=== PATIENT | male | born 1985 | race Caucasian/White ===

== ENCOUNTER 2021-04-14 12:31 | Emergency (ER) | payer MEDICAID ==
--- NOTE | 2021-04-14 13:20 | EDM.PDOCBH ---
ED HPI GENERAL MEDICAL PROBLEM - General Chief Complaint: Drug or Alcohol Abuse Stated Complaint: DRUNK Time Seen by Provider: 04/14/21 13:05 Source of Information: Reports: Patient, Old Records, Other (social services aide) History Limitations: Reports: No Limitations - History of Present Illness INITIAL COMMENTS - FREE TEXT/NARRATIVE: 35 yo male is brought in for medical clearance for alcohol detox. He has been drinking heavily lately and has experienced some recent vomiting. He has a pHx of alcohol abuse and has been through detox multiple times. He has a bed waiting for him at [facility] in [place], [place] if he is deemed to be medically stable. Onset: Unknown/Unsure Duration: Chronic, Getting Worse Location: Reports: Generalized Quality: Reports: Other (pain not reported) Severity: Severe Improves with: Reports: Other (detox) Worsens with: Reports: Other (withdrawal or excessive use of ETOH) Context: Reports: Other (See HPI) Associated Symptoms: Reports: Nausea/Vomiting, Other (sx's of intoxication) Treatments INSTITUTIONAL CUSTODIAN: Reports: Other (see below) (none) - Related Data Allergies Allergy/AdvReac Type Severity Reaction Status Date / Time No Known Allergies Allergy Verified 04/14/21 12:42 Home Meds: Home Meds ARIPiprazole [Abilify] 5 mg PO DAILY 04/14/21 [History] Budesonide/Formoterol [Symbicort 160-4.5 MCG] 2 puff INH BID 04/14/21 [History] Mirtazapine [Remeron] 15 mg PO BEDTIME 04/14/21 [History] Sertraline [Zoloft] 100 mg PO DAILY 04/14/21 [History] lisinopriL [Lisinopril] 10 mg PO DAILY 04/14/21 [History] Social & Family History - Tobacco Use Tobacco Use Status *Q: Current Every Day Tobacco User Years of Tobacco use: 20 Packs/Tins Daily: 1 - Caffeine Use Caffeine Use: Reports: None - Alcohol Use Days Per Week of Alcohol Use: 7 Number of Drinks Per Day: 18 Total Drinks Per Week: 126 - Recreational Drug Use Recreational Drug Use: No ED ROS GENERAL - Review of Systems Review Of Systems: See Below Constitutional: Reports: Other (intoxication) HEENT: Reports: No Symptoms Respiratory: Reports: No Symptoms Cardiovascular: Reports: No Symptoms GI/Abdominal: Reports: Nausea, Vomiting : Reports: No Symptoms Musculoskeletal: Reports: No Symptoms Skin: Reports: No Symptoms Neurological: Reports: Difficulty Walking (due to intox), Gait Disturbance (due to intox) ED EXAM, BEHAVIORAL HEALTH - Physical Exam Exam: See Below Exam Limited By: No Limitations General Appearance: Alert, WD/WN, No Apparent Distress, Obese Eye Exam: Bilateral Eye: Normal Inspection Ears: Normal External Exam, Normal Canal, Hearing Grossly Normal Nose: Normal Inspection, No Blood Throat/Mouth: Normal Inspection, Normal Lips, Normal Oropharynx, Normal Voice, No Airway Compromise Head: Atraumatic, Normocephalic Neck: Normal Inspection Respiratory/Chest: No Respiratory Distress, Lungs Clear, Normal Breath Sounds, No Accessory Muscle Use Cardiovascular: Regular Rate, Rhythm, No Edema, Tachycardia GI/Abdominal: Normal Bowel Sounds, Soft, No Distention, Tender (RUQ and epigastrium). No: Distended (obese) Back Exam: Normal Inspection Extremities: Normal Inspection, Normal Range of Motion, Non-Tender, No Pedal Edema Neurological: Alert, Normal Mood/Affect, CN II-XII Intact, Normal Cognition, No Motor/Sensory Deficits, Oriented x 3 Psychiatric: Other (alcohol intoxication) Skin Exam: Warm, Dry, Intact, Normal color, No rash COURSE, BEHAVIORAL HEALTH COMP - Course Vital Signs: Last Vital Signs Temp 37.1 C 04/14/21 12:42 Pulse 89 04/14/21 23:50 Resp 18 04/14/21 23:50 BP 159/103 H 04/15/21 07:38 Pulse Ox 98 04/14/21 23:50 Orders, Labs, Meds: Active Orders 24 hr Category Date Time Status Insert Kay Catheter [Insert Urinary Catheter] [OM.PC] Care 04/15/21 00:00 Ordered Q24H Urinary Catheter Assessment [RC] QSHIFT Care 04/15/21 02:58 Active Laboratory Tests 04/14/21 04/14/21 04/14/21 Range/Units 13:00 13:00 13:00 WBC 7.8 (3.2-10.1) x10-3/uL RBC 5.32 (3.90-5.90) x10(6)uL Hgb 17.8 H (12.9-17.7) g/dL Hct 51.2 H (38.3-50.1) % MCV 96.3 (80.8-98.7) fL MCH 33.5 H (27.0-33.3) pg MCHC 34.8 (28.7-35.3) g/dL RDW 13.9 (12.4-15.0) % Plt Count 293 (117-477) x10(3)uL Sodium 144 (135-145) mmol/L Potassium 3.2 L (3.5-5.3) mmol/L Chloride 102 (100-110) mmol/L Carbon Dioxide 24 (21-32) mmol/L BUN 10 (7-18) mg/dL Creatinine 0.9 (0.70-1.30) mg/dL Est Cr Clr Drug Dosing 105.07 mL/min Estimated GFR (MDRD) > 60 (>60) BUN/Creatinine Ratio 11.1 (9-20) Glucose 116 (80-116) mg/dL Calcium 8.8 (8.6-10.2) mg/dL Magnesium (1.8-2.5) mg/dL Total Bilirubin 0.4 (0.1-1.3) mg/dL AST 48 H (5-25) IU/L ALT 84 H (12-36) U/L Alkaline Phosphatase 114 H (56-112) IU/L Total Protein 7.8 (6.0-8.0) g/dL Albumin 4.2 (3.5-5.2) g/dL Globulin 3.6 g/dL Albumin/Globulin Ratio 1.2 Urine Color (YELLOW) Urine Appearance (CLEAR) Urine pH (5.0-6.5) Ur Specific [place] (1.010-1.025) Urine Protein (NEGATIVE) mg/dL Urine Glucose (UA) (NORMAL) mg/dL Urine Ketones (NEGATIVE) mg/dL Urine Occult Blood (NEGATIVE) Urine Nitrite (NEGATIVE) Urine Bilirubin (NEGATIVE) Urine Urobilinogen (NEGATIVE) mg/dL Ur Leukocyte Esterase (NEGATIVE) Urine RBC (0-5) Urine WBC (0-5) Ur Squamous Epith Cells (NS,R,O) Urine Bacteria (NS) Urine Mucus (NS) Urine Opiates Screen (NEGATIVE) Ur Buprenorphine Scrn (NEGATIVE) Ur Oxycodone Screen (NEGATIVE) Urine Methadone Screen (NEGATIVE) Ur Propoxyphene Screen (NEGATIVE) Ur Barbiturates Screen (NEGATIVE) Ur Tricyclics Screen (NEGATIVE) Ur Phencyclidine Scrn (NEGATIVE) Ur Amphetamine Screen (NEGATIVE) U Methamphetamines Scrn (NEGATIVE) U Benzodiazepines Scrn (NEGATIVE) U Cocaine Metab Screen (NEGATIVE) U Marijuana (THC) Screen (NEGATIVE) Ethyl Alcohol 0.46 H* (<0.03) % SARS-CoV-2 RNA (RICKIE) (NEGATIVE) 04/14/21 04/14/21 04/14/21 Range/Units 13:05 19:35 22:30 WBC (3.2-10.1) x10-3/uL RBC (3.90-5.90) x10(6)uL Hgb (12.9-17.7) g/dL Hct (38.3-50.1) % MCV (80.8-98.7) fL MCH (27.0-33.3) pg MCHC (28.7-35.3) g/dL RDW (12.4-15.0) % Plt Count (117-477) x10(3)uL Sodium (135-145) mmol/L Potassium (3.5-5.3) mmol/L Chloride (100-110) mmol/L Carbon Dioxide (21-32) mmol/L BUN (7-18) mg/dL Creatinine (0.70-1.30) mg/dL Est Cr Clr Drug Dosing mL/min Estimated GFR (MDRD) (>60) BUN/Creatinine Ratio (9-20) Glucose (80-116) mg/dL Calcium (8.6-10.2) mg/dL Magnesium 2.1 (1.8-2.5) mg/dL Total Bilirubin (0.1-1.3) mg/dL AST (5-25) IU/L ALT (12-36) U/L Alkaline Phosphatase (56-112) IU/L Total Protein (6.0-8.0) g/dL Albumin (3.5-5.2) g/dL Globulin g/dL Albumin/Globulin Ratio Urine Color (YELLOW) Urine Appearance (CLEAR) Urine pH (5.0-6.5) Ur Specific [place] (1.010-1.025) Urine Protein (NEGATIVE) mg/dL Urine Glucose (UA) (NORMAL) mg/dL Urine Ketones (NEGATIVE) mg/dL Urine Occult Blood (NEGATIVE) Urine Nitrite (NEGATIVE) Urine Bilirubin (NEGATIVE) Urine Urobilinogen (NEGATIVE) mg/dL Ur Leukocyte Esterase (NEGATIVE) Urine RBC (0-5) Urine WBC (0-5) Ur Squamous Epith Cells (NS,R,O) Urine Bacteria (NS) Urine Mucus (NS) Urine Opiates Screen (NEGATIVE) Ur Buprenorphine Scrn (NEGATIVE) Ur Oxycodone Screen (NEGATIVE) Urine Methadone Screen (NEGATIVE) Ur Propoxyphene Screen (NEGATIVE) Ur Barbiturates Screen (NEGATIVE) Ur Tricyclics Screen (NEGATIVE) Ur Phencyclidine Scrn (NEGATIVE) Ur Amphetamine Screen (NEGATIVE) U Methamphetamines Scrn (NEGATIVE) U Benzodiazepines Scrn (NEGATIVE) U Cocaine Metab Screen (NEGATIVE) U Marijuana (THC) Screen (NEGATIVE) Ethyl Alcohol 0.22 H* (<0.03) % SARS-CoV-2 RNA (RICKIE) Negative (NEGATIVE) 04/15/21 04/15/21 Range/Units 02:45 02:45 WBC (3.2-10.1) x10-3/uL RBC (3.90-5.90) x10(6)uL Hgb (12.9-17.7) g/dL Hct (38.3-50.1) % MCV (80.8-98.7) fL MCH (27.0-33.3) pg MCHC (28.7-35.3) g/dL RDW (12.4-15.0) % Plt Count (117-477) x10(3)uL Sodium (135-145) mmol/L Potassium (3.5-5.3) mmol/L Chloride (100-110) mmol/L Carbon Dioxide (21-32) mmol/L BUN (7-18) mg/dL Creatinine (0.70-1.30) mg/dL Est Cr Clr Drug Dosing mL/min Estimated GFR (MDRD) (>60) BUN/Creatinine Ratio (9-20) Glucose (80-116) mg/dL Calcium (8.6-10.2) mg/dL Magnesium (1.8-2.5) mg/dL Total Bilirubin (0.1-1.3) mg/dL AST (5-25) IU/L ALT (12-36) U/L Alkaline Phosphatase (56-112) IU/L Total Protein (6.0-8.0) g/dL Albumin (3.5-5.2) g/dL Globulin g/dL Albumin/Globulin Ratio Urine Color Yellow (YELLOW) Urine Appearance Clear (CLEAR) Urine pH 5.0 (5.0-6.5) Ur Specific [place] 1.020 (1.010-1.025) Urine Protein Negative (NEGATIVE) mg/dL Urine Glucose (UA) Normal (NORMAL) mg/dL Urine Ketones 15 H (NEGATIVE) mg/dL Urine Occult Blood Negative (NEGATIVE) Urine Nitrite Negative (NEGATIVE) Urine Bilirubin Negative (NEGATIVE) Urine Urobilinogen Normal (NEGATIVE) mg/dL Ur Leukocyte Esterase Negative (NEGATIVE) Urine RBC 0-5 (0-5) Urine WBC 0-5 (0-5) Ur Squamous Epith Cells Occasional (NS,R,O) Urine Bacteria Few H (NS) Urine Mucus Few H (NS) Urine Opiates Screen Negative (NEGATIVE) Ur Buprenorphine Scrn Negative (NEGATIVE) Ur Oxycodone Screen Negative (NEGATIVE) Urine Methadone Screen Negative (NEGATIVE) Ur Propoxyphene Screen Negative (NEGATIVE) Ur Barbiturates Screen Negative (NEGATIVE) Ur Tricyclics Screen Negative (NEGATIVE) Ur Phencyclidine Scrn Negative (NEGATIVE) Ur Amphetamine Screen Negative (NEGATIVE) U Methamphetamines Scrn Negative (NEGATIVE) U Benzodiazepines Scrn Negative (NEGATIVE) U Cocaine Metab Screen Negative (NEGATIVE) U Marijuana (THC) Screen Negative (NEGATIVE) Ethyl Alcohol (<0.03) % SARS-CoV-2 RNA (RICKIE) (NEGATIVE) Medications Discontinued Medications Generic Name Dose Route Start Last Admin Trade Name Freq PRN Reason Stop Dose Admin Clonidine HCl 0.2 mg 04/15/21 07:24 04/15/21 07:38 Clonidine 0.1 Mg Tab PO 04/15/21 07:25 0.2 mg NOW STA Administration Diazepam 10 mg 04/15/21 07:21 04/15/21 07:39 Diazepam 5 Mg Tab PO 04/15/21 07:22 10 mg NOW STA Administration Haloperidol Lactate 10 mg 04/14/21 14:23 04/14/21 14:33 Haloperidol Lactate 5 Mg/Ml Sdv IM 04/14/21 14:24 10 mg ONETIME ONE Administration Ondansetron HCl 4 mg 04/15/21 07:21 04/15/21 07:31 Ondansetron 4 Mg Tab.Dis PO 04/15/21 07:22 4 mg NOW STA Administration Potassium Chloride 40 meq 04/14/21 13:51 04/14/21 22:15 Potassium Chloride 20 Meq Tab.Er PO 04/14/21 13:52 40 meq ONETIME ONE Administration Thiamine HCl 100 mg 04/14/21 13:52 04/14/21 22:16 Thiamine 100 Mg Tab PO 04/14/21 13:53 100 mg ONETIME ONE Administration Re-Assessment/Re-Exam: Got up while watched by the social services aide that brought him in. Before she could alert anyone or stop him he fell face forward onto the floor incurring a brisk nose bleed that appears to have stopped with a nasal clamp. A C-collar was applied. Will send for CT head and neck. Re-Assessment/Re-Exam Date: 04/14/21 (Was medicated with Haldol due to his inability to follow commands, was danger to himself due to his extreme intoxicatin.) Departure - Departure Time of Disposition: 18:00 Disposition: Still A Patient 30 Condition: Poor Clinical Impression: Chronic alcohol abuse, Epistaxis, Hypokalemia Very severe alcohol intoxication Qualifiers: Complication of substance-induced condition: with unspecified complication Qualified Code(s): F10.129 - Alcohol abuse with intoxication, unspecified Obesity Qualifiers: Obesity type: due to excess calories Obesity classification: unspecified obesity classification Serious obesity comorbidity presence: unspecified whether serious comorbidity present Qualified Code(s): E66.09 - Other obesity due to excess calories - Discharge Information *PRESCRIPTION DRUG MONITORING PROGRAM REVIEWED*: Not Applicable *COPY OF PRESCRIPTION DRUG MONITORING REPORT IN PATIENT ARTURO: Not Applicable Referrals: PCP,None [Primary Care Provider] - Forms: ED Department Discharge Sepsis Event Note (ED) - Evaluation Sepsis Screening Result: No Definite Risk - Focused Exam Vital Signs: Vital Signs BP 04/15/21 07:38 159/103 H
[2021-04-14] MEDS ORDERED: Potassium Chloride 20 MEQ Tab.ER PO ONE (13:51)
[2021-04-14] MEDS ORDERED: Thiamine 100 MG Tab PO ONE (13:52)
[2021-04-14] MEDS ORDERED: Haloperidol Lactate 5 MG/ML SDV IM ONE (14:23)
--- NOTE | 2021-04-14 15:04 | CT ---
INDICATION: Fall with injury - face plant. CT HEAD WITHOUT CONTRAST: Spiral 3.75 mm axial sections were obtained through the brain with axial, sagittal, and coronal reconstructions 04/14/21 - no comparisons. Total exam DLP was 1796.17 milligray-cm. No cranial fracture site was identified. Orbits appear to be intact. Mastoid air cells appear to be well aerated. There is some thickening of the lining and what appears to be a retention cyst in the right maxillary antrum with paranasal sinuses otherwise appearing well aerated. There is some deviation of the nasal bones to the right which appears to be either due to previous trauma or may be developmental - there is nasal septal deviation to the left which is also compatible with an anatomic variant. The orbits appear to be intact. No shift of midline structures, ventricular abnormalities or abnormal areas of density are identified - no bleeding site or hematoma was seen. IMPRESSION: 1. No acute intracranial abnormality. 2. Some deformity of nasal bones most likely on the basis of developmental process. 3. Retention cyst and thickening of the lining of a portion of the posterior wall of the right maxillary antrum. Minimal fluid could be present that area. Report was called to Dr. Zavala at [address] [facility]
--- NOTE | 2021-04-14 15:10 | CT ---
INDICATION: Fall with head injury - face plant. CT CERVICAL SPINE WITHOUT CONTRAST: Spiral 2.5 mm axial sections were obtained through the cervical spine with sagittal and coronal reconstructions 04/14/21 - no comparisons. Total exam DLP was 469.16 milligray-cm. Vertebral body and disc heights were maintained. Bone density appeared normal. Prevertebral space appeared normal. The odontoid appear to be intact. The axis and atlas were intact in general. There are some minimal degenerative changes at the odonto-atlantian joint with the joint space minimally narrowed. There is an appearance of increased density in the superior thoracic spinal canal, which is felt to be artifactual. If symptoms are referable to that area, however, MRI may be helpful for further evaluation. IMPRESSION: Essentially normal CT cervical spine except to note some increased density in the spinal canal upper thoracic area which may be artifactual. Report was called to Dr. Zavala. [facility]
[2021-04-15] MEDS ORDERED: Diazepam 5 MG Tab PO STA (07:21)
[2021-04-15] MEDS ORDERED: Ondansetron 4 MG Tab.DIS PO STA (07:21)
[2021-04-15] MEDS ORDERED: cloNIDine 0.1 MG Tab PO STA (07:24)
== END 2021-04-15 13:45 | disposition other institution (70) ==
LOC: FB.ED 12:31
DX: F10.129 Alcohol abuse with intoxication, unspecified (principal); E66.09 Other obesity due to excess calories; R04.0 Epistaxis; E87.6 Hypokalemia; Z72.0 Tobacco use; Z79.899 Other long term (current) drug therapy; Z20.822 Contact with and (suspected) exposure to COVID-19; Y90.5 Blood alcohol level of 100-119 mg/100 ml; Z68.39 Body mass index [BMI] 39.0-39.9, adult
CPT/HCPCS: 36415; 51701; 70450; 72125; 80053; 80307; 81001; 83735; 85027; 87635; 96372; 99285; A9270; J1630; U0002